=== PATIENT | female | born 1945 | race American Indian/Alaskan Native ===

== ENCOUNTER 2018-09-23 08:21 | Day surgery (SDC) | payer BC, MEDICARE ==
[~2018-09-23] VITALS: Ht 139.7 cm; Wt 87.0 kg
[~2018-09-23 08:21] MED LIST: IBUP800 PO; OXYACE5T PO
--- NOTE | 2018-09-23 09:38 | NUR ---
Ambulatory in Day SurgeryPatient states colon prep results clear. History, Chart, Medications and Allergies reviewed before start of procedure.Lungs clear T/O to Auscultation. Patient confirms NPO status and agrees with scheduled surgery. Pre-Op teaching done. Pt verbalizes understanding. Patient States Post-Procedure ride home has been arranged.
[2018-09-23] MEDS ORDERED: Hair, Skin & N1 EACH PO (09:39)
[2018-09-23] MEDS ORDERED: FISH OIL (09:42)
--- NOTE | 2018-09-23 09:52 | NUR ---
PT CALM AND PLEASANT NO COMPLAINTS AT THIS TIME.
--- NOTE | 2018-09-23 10:09 | NUR ---
09/23/18 1009 Abilio Young PATIENT DETERMINED TO BE ASA APPROPRIATE FOR PROPOFOL SEDATION PRIOR TO START OF PROCEDURE BY 3-LEAD EKG REVIEWED WITH PHYSICIAN PRIOR TO START OF PROCEDURE.Patient to ENDO 1History, Chart, Medications and Allergies reviewed before start of procedure.MONITOR INTACT WITH CONTINUOUS PULSE OXIMETRY AND INTERMITTENT BP.O2 VIA N/C INTACT THROUGHOUT SEDATION/PROCEDURE.
--- NOTE | 2018-09-23 11:22 | NUR ---
Patient up to Ambulate independently. Gait steady. Discharge instructions reviewed with patient. Patient verbalizes understanding. Copy given to patient to take home. Patient States Post-Procedure ride home has been arranged. Discharged via wheelchair to private car for ride home.
== END 2018-09-23 22:43 | disposition home or self-care (01) ==
LOC: ORSCMMR 08:21 → ORD 09:30 → ORSCMMR 09:30
PROVIDERS: Internal Medicine Gastroenterology
PROC: 0DBM8ZX Excision of Descending Colon, Via Natural or Artificial Opening Endoscopic, Diagnostic (ICD-10-PCS; principal; 2018-09-23 09:30)
PROC: 0DBK8ZX Excision of Ascending Colon, Via Natural or Artificial Opening Endoscopic, Diagnostic (ICD-10-PCS; principal; 2018-09-23 09:30)
PROC: 0DBN8ZX Excision of Sigmoid Colon, Via Natural or Artificial Opening Endoscopic, Diagnostic (ICD-10-PCS; principal; 2018-09-23 09:30)
PROC: 0DBL8ZX Excision of Transverse Colon, Via Natural or Artificial Opening Endoscopic, Diagnostic (ICD-10-PCS; principal; 2018-09-23 09:30)
DX: Z12.11 Encounter for screening for malignant neoplasm of colon (principal); D12.3 Benign neoplasm of transverse colon; D12.2 Benign neoplasm of ascending colon; D12.4 Benign neoplasm of descending colon; D12.5 Benign neoplasm of sigmoid colon
CPT/HCPCS: 88305; J2704; J7120

== ENCOUNTER 2019-03-15 11:15 | Emergency (ER) | payer BC, MEDICARE ==
[~2019-03-15] VITALS: Ht 152.4 cm; Wt 90.3 kg
[~2019-03-15 11:15] MED LIST changes: +FISH OIL; +Hair, Skin & N1 EACH PO
[2019-03-15] MEDS ORDERED: IBUP600 PO (11:45)
[2019-03-15] MEDS ORDERED: Ultram50 MG PO (12:07)
== END 2019-03-15 12:16 | disposition home or self-care (01) ==
LOC: ER 11:15
DX: G89.29 Other chronic pain (principal); M25.562 Pain in left knee
CPT/HCPCS: 99282

== ENCOUNTER → 2021-10-01 | Outpatient (CLI) | payer BC, MEDICARE ==
[~2021-10-01] MED LIST changes: +IBUP600 PO; +Ultram50 MG PO
== END | disposition home or self-care (01) ==
LOC: LAB SHORT 18:15 → LAB 18:15
DX: N39.0 Urinary tract infection, site not specified (principal)
CPT/HCPCS: 87077; 87086; 87186

== ENCOUNTER 2021-11-03 12:55 | Emergency (ER) | payer BC, MEDICARE ==
[~2021-11-03] VITALS: Ht 147.3 cm; Wt 86.2 kg
[2021-11-03] MEDS ORDERED: CEPH500 PO (15:23)
== END 2021-11-03 15:32 | disposition home or self-care (01) ==
LOC: ER 12:55
DX: J06.9 Acute upper respiratory infection, unspecified (principal)
CPT/HCPCS: 99283

== ENCOUNTER → 2021-12-26 | Outpatient (CLI) | payer BC, MEDICARE ==
[~2021-12-26] MED LIST changes: +CEPH500 PO
== END | disposition home or self-care (01) ==
LOC: LAB 07:38 → PLD 07:38 → LAB SHORT 07:38
DX: L60.2 Onychogryphosis (principal); B35.1 Tinea unguium
CPT/HCPCS: 88305; 88312

== ENCOUNTER 2022-11-05 06:45 | Day surgery (SDC) | payer BC, MEDICARE ==
[2022-11-05] VITALS (16 sets, daily range): BP systolic 98–158; BP diastolic 56–81
[~2022-11-05] VITALS: Ht 149.9 cm; Wt 91.3 kg
[~2022-11-05 06:45] MED LIST changes: +ALBU90OI INH; +ALEN70 PO; +ATOR10 PO; +CETI5 PO; +Cyclobenzaprine5 MG PO; +DILT120 PO; +ERGO50000 PO; +FISH OIL 1,2001 EAC7 PO; +HYDCHL25; +HYDCHL25 PO; +MYRBETRIQ25 MG PO; +TRAM50 PO
[2022-11-05] MEDS ORDERED: Diclofenac Sodi50 MG PO (07:20)
--- NOTE | 2022-11-05 07:52 | NUR ---
11/05/22 0752 Carole Curtis HISTORY, CHART, MEDICATIONS AND ALLERGIES REVIEWED BEFORE START OF PROCEDURE. PATIENT CONFIRMS NPO STATUS AND AGREES WITH SCHEDULED PROCEDURE. 3-LEAD EKG REVIEWED WITH PHYSICIAN PRIOR TO START OF PROCEDURE. MONITOR INTACT WITH CONTINUOUS PULSE OXIMETRY,CAPNOGRAPHY, 3-LEAD EKG, INTERMITTENT BP. SUPPLEMENTAL O2 TO BE TITRATED THROUGHOUT PROCEDURE TO MAINTAIN O2 SATURATION ABOVE 90%. PATIENT DETERMINED TO BE ASA APPROPRIATE FOR PROPOFOL SEDATION PRIOR TO START OF PROCEDURE BY
--- NOTE | 2022-11-05 08:38 | NUR ---
REPORT RECIEVED. PT UP IN BED TOLERATING PO FLUIDS. DR MILLS AT BEDSIDE. VSS. ROOM AIR
--- NOTE | 2022-11-05 08:55 | NUR ---
Patient up to Ambulate independently. Gait steady. Discharge instructions reviewed with patient. Patient verbalizes understanding. Copy given to patient to take home. Discharged via wheelchair to private car for ride home.
== END 2022-11-05 09:00 | disposition home or self-care (01) ==
LOC: ORSCMMR 06:45 → ORD 08:00 → ORSCMMR 09:00
PROVIDERS: Internal Medicine Gastroenterology
PROC: 0DBK8ZX Excision of Ascending Colon, Via Natural or Artificial Opening Endoscopic, Diagnostic (ICD-10-PCS; principal; 2022-11-05 08:00)
PROC: 0DBN8ZX Excision of Sigmoid Colon, Via Natural or Artificial Opening Endoscopic, Diagnostic (ICD-10-PCS; principal; 2022-11-05 08:00)
DX: Z12.11 Encounter for screening for malignant neoplasm of colon (principal); Z86.010 Personal history of colon polyps; K63.5 Polyp of colon; J45.909 Unspecified asthma, uncomplicated; E78.00 Pure hypercholesterolemia, unspecified; I10 Essential (primary) hypertension; Z79.899 Other long term (current) drug therapy
CPT/HCPCS: 88305; J2704; J7120

== ENCOUNTER 2023-05-06 08:26 | Day surgery (SDC) | payer BC, MEDICARE ==
[~2023-05-06] VITALS: Ht 121.9 cm; Wt 87.1 kg
[2023-05-06] VITALS (14 sets, daily range): BP systolic 109–157; BP diastolic 52–78
[~2023-05-06 08:26] MED LIST changes: +DICL75ER PO; +Diclofenac Sodi50 MG PO; +MELO7.5 PO
--- NOTE | 2023-05-06 11:45 | NUR ---
History, Chart, Medications and Allergies reviewed before start of procedure. Ambulatory in Day Surgery. Pre-Op teaching done. Pt verbalizes understanding. Patient confirms NPO status and agrees with scheduled surgery. Patient reports completing Chlorhexadine shower X2 prior to admission to hospital. Surgical site prepped with 2% Chlorhexidine cloth wipe. Lungs clear T/O to Auscultation. Patient States Post-Procedure ride home has been arranged.
--- NOTE | 2023-05-06 17:34 | NUR ---
PT ADMITED TO UNIT AT APROX 1700 FROM PACU. PT POD 0 L TKA. ESTEBAN WRAP TO L KNEE C/D/I WITH POLAR PACK IN PLACE. PT REPORTS FEELING TO BLE, WIGGLES TOES W/O DIFFICULTY. PT DENIES PAIN AT THIS TIME. PT TOLERATING CLEAR LIQUIDS W/NO N/V WILL ADVANCE TOLERATED. PT HAS HAD NO VOID AT THIS TIME, LAST BLADDER SCAN 1615 IN PACU 192.
[2023-05-07 02:52] VITALS: BP 146/59
[2023-05-07 05:32] LABS: BASOPHILS ABSOLUTE AUTO 0.01 K/mm3 (0.00-0.23); BASOPHILS PERCENT AUTO 0 % (0-2); EOSINOPHILS PERCENT AUTO 0 % (0-6); Hematocrit 34.5 % (33.0-51.0); Hemoglobin 11.6 g/dL (11.5-16.0); IMMATURE GRAN ABSOLUTE AUTO 0.07 K/mm3 (0.00-0.10); IMMATURE GRAN PERCENT AUTO 1 % (0-1); LYMPHOCYTES ABSOLUTE AUTO 1.84 K/mm3 (0.84-5.20); LYMPHOCYTES PERCENT AUTO 13 % (21-46); MONOCYTES ABSOLUTE AUTO 0.56 K/mm3 (0.16-1.47); MONOCYTES PERCENT AUTO 4 % (4-13); Mean Corpuscular HGB Conc 33.6 g/dL (31.5-36.5); Mean Corpuscular Volume 95 fL (80-100); Mean Platelet Volume 10.1 fL (9.1-12.4); NEUTROPHILS PERCENT AUTO 83 % (41-73); Platelet Count 151 K/mm3 (150-400); RDW Coefficient Variation 13.9 % (11.7-14.2); RDW Standard Deviation 49.1 fL (35.1-46.3); Red Blood Cell Count 3.63 M/mm3 (3.80-5.20); White Blood Cell Count 14.48 K/mm3 (4.00-11.30)
[2023-05-07 05:56] LABS: Bun/Creatinine Ratio 28.8 (12.0-20.0); Calcium, Blood 9.1 mg/dL (8.5-10.1); Creatinine, Blood 0.66 mg/dL (0.40-1.00); Magnesium, Blood 2.1 mg/dL (1.6-2.4); Potassium, Blood 4.1 mmol/L (3.5-5.5)
--- NOTE | 2023-05-07 06:40 | NUR ---
SHIFT SUMMARY POD1 L TKA. DRESSING IS C/D/I. VSS. PT SLEPT WELL T/O THE NIGHT. MEDICATED WITH SCHEDULED PAIN MEDICATION, PT DENIES PAIN T/O THE NIGHT. AMBULATED TO THE BATHROOM TO VOID MULTIPLE TIMES. OVERALL, NO ACUTE EVENTS NOTED. PLAN FOR PT TO WORK WITH PT AND D/C HOME.
[2023-05-07 07:36] VITALS: BP 125/54
[2023-05-07] MEDS ORDERED: OXAYDO5 M1 PO ×2 (10:30→10:36)
--- NOTE | 2023-05-07 11:05 | NUR ---
05/07/23 1105 Saba Ku VERIFICATION: EDIT CHART.
--- NOTE | 2023-05-07 11:59 | NUR ---
DISCHARGE PT DISCHARGED HOME FROM UNIT AT APROX 1146. PT AND SON GIVEN WRITTEN AND VERBAL DISCHARGE INSTRUCTIONS AND VERBALIZED UNDERSTANDING OF THESE INSTRUCTIONS. IV REMOVED, TOLERATED WELL. WC TO CAR. ALL BELONGING WITH PATIENT
== END 2023-05-07 12:14 | disposition home or self-care (01) ==
LOC: ORSCMMR 08:26 → ORD 10:45 → ORSCMMR 14:00 → SURS 16:25 → ORSCMMR 16:25 → ORD 05-07 09:15 → SURS 05-07 12:14 → ORSCMMR 05-07 12:14
PROVIDERS: Orthopaedic Surgery
PROC: 0SRD0J9 Replacement of Left Knee Joint with Synthetic Substitute, Cemented, Open Approach (ICD-10-PCS; principal; 2023-05-06 14:00)
DX: M17.12 Unilateral primary osteoarthritis, left knee (principal); I10 Essential (primary) hypertension; Z71.3 Dietary counseling and surveillance; E78.00 Pure hypercholesterolemia, unspecified; Z79.899 Other long term (current) drug therapy; E66.9 Obesity, unspecified; Z68.38 Body mass index [BMI] 38.0-38.9, adult
CPT/HCPCS: 36415; 73560-LT; 80048; 83735; 85025; 97110; 97116; 97162; 97530; A9270; C1713; C1776; J0171; J0690; J0735; J1100; J1885; J2405; J2704; J2765; J2795; J3010; J3370; J7120

== ENCOUNTER 2023-05-23 14:48 | Emergency (ER) | payer BC, MEDICARE ==
[~2023-05-23] VITALS: Ht 149.9 cm; Wt 86.2 kg
[~2023-05-23 14:48] MED LIST changes: +OXAYDO5 M1 PO
[2023-05-23 15:21] LABS: BASOPHILS ABSOLUTE AUTO 0.07 K/mm3 (0.00-0.23); BASOPHILS PERCENT AUTO 1 % (0-2); EOSINOPHILS ABSOLUTE AUTO 0.83 K/mm3 (0.00-0.68); EOSINOPHILS PERCENT AUTO 9 % (0-6); Hematocrit 39.2 % (33.0-51.0); Hemoglobin 12.4 g/dL (11.5-16.0); IMMATURE GRAN ABSOLUTE AUTO 0.02 K/mm3 (0.00-0.10); IMMATURE GRAN PERCENT AUTO 0 % (0-1); LYMPHOCYTES ABSOLUTE AUTO 3.66 K/mm3 (0.84-5.20); LYMPHOCYTES PERCENT AUTO 40 % (21-46); MONOCYTES ABSOLUTE AUTO 0.81 K/mm3 (0.16-1.47); MONOCYTES PERCENT AUTO 9 % (4-13); Mean Corpuscular HGB 31.3 pg (26.0-34.0); Mean Corpuscular HGB Conc 31.6 g/dL (31.5-36.5); Mean Corpuscular Volume 99 fL (80-100); Mean Platelet Volume 9.1 fL (9.1-12.4); NEUTROPHILS ABSOLUTE AUTO 3.81 K/mm3 (1.96-9.15); NEUTROPHILS PERCENT AUTO 41 % (41-73); Platelet Count 249 K/mm3 (150-400); RDW Coefficient Variation 15.2 % (11.7-14.2); RDW Standard Deviation 55.3 fL (35.1-46.3); Red Blood Cell Count 3.96 M/mm3 (3.80-5.20)
[2023-05-23 15:42] LABS: Albumin, Blood 3.3 g/dL (3.4-5.0); Albumin/Globulin Ratio 0.8 (0.8-1.8); Bilirubin, Total 0.5 mg/dL (0.1-1.0); Bun/Creatinine Ratio 20.9 (12.0-20.0); Calcium, Blood 10.4 mg/dL (8.5-10.1); Creatinine, Blood 0.53 mg/dL (0.40-1.00); Globulin, Blood 4.3 g/dL (2.2-4.0); Potassium, Blood 3.7 mmol/L (3.5-5.5); Total Protein, Blood 7.6 g/dL (6.4-8.2)
[2023-05-23] MEDS ORDERED: LOW DOSE ASPIRI81 M1 PO (17:22)
[2023-05-23] MEDS ORDERED: HYDROCODONE-AC1 EA19 PO (17:22)
[2023-05-23] MEDS ORDERED: DILTIAZEM 24HR240 M3 PO (17:23)
[2023-05-23 18:58] LABS: Source, Urine Clean Catch
[2023-05-23 19:17] LABS: Appearance, Urine Hazy (Clear); Bilirubin, Urine Neg (Neg); Blood, Urine 5+ (Neg); Color, Urine Yellow (P-Yellow); Glucose Qualitative, Urine Neg (Neg); Ketones, Urine Neg (Neg); Leukocyte Esterase, Urine 1+ (Neg); Nitrite, Urine Neg (Neg); Protein, Urine Neg (Neg); Urobilinogen, Urine NORM (Normal)
[2023-05-23 19:35] LABS: Bacteria Few /hpf; Red Blood Cells, Urine 25-50 /hpf (0-2); Squamous Epithelial Cells Rare /hpf (Few)
[2023-05-23 19:45] VITALS: BP 145/62
== END 2023-05-23 20:10 | disposition home or self-care (01) ==
LOC: ER 14:48
PROVIDERS: Student in an Organized Health Care Education/Training Program
DX: D25.9 Leiomyoma of uterus, unspecified (principal); Z79.899 Other long term (current) drug therapy; Z79.82 Long term (current) use of aspirin
CPT/HCPCS: 76830; 76856; 80053; 81001; 85025; 86850; 86900; 86901; 87086; 99284-25

== ENCOUNTER → 2023-08-21 | Outpatient (CLI) | payer BC, MEDICARE ==
[~2023-08-21] MED LIST changes: +DILTIAZEM 24HR240 M3 PO; +HYDROCODONE-AC1 EA19 PO; +LOW DOSE ASPIRI81 M1 PO
[2023-08-27 11:14] LABS: HPV HIGH RISK BY TMA Not Detected; HPV SOURCE Vaginal
== END | disposition home or self-care (01) ==
LOC: LAB 10:23 → LAB SHORT 10:23
PROVIDERS: Obstetrics & Gynecology
DX: Z01.419 Encounter for gynecological examination (general) (routine) without abnormal findings (principal)
CPT/HCPCS: 87624; G0123

== ENCOUNTER 2023-10-16 11:34 | Day surgery (SDC) | payer BC, MEDICARE ==
[~2023-10-16] VITALS: Ht 149.9 cm; Wt 86.9 kg
[2023-10-16] VITALS (9 sets, daily range): BP systolic 131–169; BP diastolic 62–75
[~2023-10-16 11:34] MED LIST changes: +DICLOFENAC35 MG PO; +Lactated Ringer's 1,000 ML IV SCH
--- NOTE | 2023-10-16 12:11 | NUR ---
History, Chart, Medications and Allergies reviewed before start of procedure. Patient States Post-Procedure ride home has been arranged WITH SON. Pre-Op teaching done. Pt verbalizes understanding. DENTURES AND HEARING AIDS REMOVED AND PLACED IN PACU WITH PT WATER/WASTEWATER ENGINEER LID.
[2023-10-16] MEDS ORDERED: propofoL 20 ML IV ONE (13:11)
[2023-10-16] MEDS ORDERED: Midazolam HCl 1MG / ML 2ML Vial ONE (13:23)
[2023-10-16] MEDS ORDERED: FentaNYL Citrate 50 MCG/ML 2 ML Injection ONE (13:24)
[2023-10-16] MEDS ORDERED: Glycopyrrolate 0.2 MG/ML 5ML VIAL ONE (13:30)
--- NOTE | 2023-10-16 13:58 | NUR ---
10/16/23 1358 Marlee Reed NO PRE-OP ANTIBIOTICS ORDERED
[2023-10-16] MEDS ORDERED: HYDROmorphone HCl/Pf 1MG SYR ONE (14:27)
[2023-10-16] MEDS ORDERED: Methylergonovine Maleate 0.2MG / ML 1ML Amp ONE (14:30)
[2023-10-16] MEDS ORDERED: OxyCODONE HCL 5 MG TAB PO PRN (15:10)
[2023-10-16] MEDS ORDERED: Acetaminophen 500 MG Tab PO PRN (15:10)
--- NOTE | 2023-10-16 16:20 | NUR ---
Ambulatory in Day Surgery WITH STEADY GAIT. ABLE TO AMBULATE TO RESTROOM. HEARING AIDS AND PARTIAL DENTURES RETURNED TO PT. Discharge instructions reviewed with patient. Patient verbalizes understanding. Copy given to patient to take home. Discharged via wheelchair to private car for ride home WITH SON.
== END 2023-10-16 22:42 | disposition home or self-care (01) ==
LOC: ORSCMMR 11:34 → ORD 13:00 → ORSCMMR 13:00 → ORSCSDS 13:00 → ORSCMMR 22:42
PROVIDERS: Obstetrics & Gynecology
PROC: 0UDB8ZX Extraction of Endometrium, Via Natural or Artificial Opening Endoscopic, Diagnostic (ICD-10-PCS; principal; 2023-10-16 10:45)
DX: N95.0 Postmenopausal bleeding (principal); N84.0 Polyp of corpus uteri; D25.9 Leiomyoma of uterus, unspecified; I10 Essential (primary) hypertension; E78.5 Hyperlipidemia, unspecified; E66.9 Obesity, unspecified; Z68.38 Body mass index [BMI] 38.0-38.9, adult; Z79.899 Other long term (current) drug therapy
CPT/HCPCS: 88305; 88341; 88342; J1170; J2210; J2250; J2704; J3010; J7120